=== PATIENT | female | born 1960 | race Caucasian/White ===

== ENCOUNTER 2022-01-24 05:43 | Emergency (ER) | payer MEDICAID ==
[~2022-01-24] VITALS: Ht 154.9 cm; Wt 63.4 kg
[2022-01-24] MEDS ORDERED: MECLIZINE 25MG TABLET PO ONE (07:15)
[2022-01-24] MEDS ORDERED: ONDANSETRON HCL 4MG/2ML INJ IV ONE (07:15)
[2022-01-24] MEDS ORDERED: SODIUM CHLORIDE 0.9% 500 ML IV ONE (07:15)
[2022-01-24 07:37] LABS: BASOPHILS % 0.1 % (0.0-2.0); EOSINOPHILS % 0.1 % (0.0-5.0); HEMATOCRIT. 36.6 % (36.0-48.0); HEMOGLOBIN. 12.3 g/dL (12.0-16.0); LYMPHOCYTES % 8.4 % (20.0-50.0); MEAN CORPUSCULAR HEMOGLOBIN 28.7 pg (28.0-32.0); MEAN CORPUSCULAR VOLUME 85.4 fL (81.0-99.0); MEAN PLATELET VOLUME 7.9 fl (7.4-10.4); MONOCYTES % 3.9 % (2.0-8.0); NEUTROPHILS % 87.5 % (40.0-76.0); PLATELET 198 x1000/uL (130-400); RED BLOOD CELL COUNT 4.28 mill/uL (4.2-5.4); RED CELL DISTRIBUTION WIDTH 15.8 % (11.6-14.6)
[2022-01-24 07:47] LABS: CHLORIDE 106 mEq/L (98-107)
[2022-01-24 09:55] VITALS: BP 138/75
[2022-01-24] MEDS ORDERED: POTASSIUM CHLORIDE 20MEQ TABLET SR PO ONE (10:15)
[2022-01-24] MEDS ORDERED: ONDA4TAB11 PO (10:20)
[2022-01-24] MEDS ORDERED: MECL-159 MT (10:20)
== END 2022-01-24 10:40 | disposition home or self-care (01) ==
LOC: ER 05:43
DX: R42 Dizziness and giddiness (principal); E87.6 Hypokalemia; I10 Essential (primary) hypertension
CPT/HCPCS: 36415; 70450; 71045; 80053; 82962; 83880; 84484; 85025; 93005; 96361; 96374; 99285; J2405; J7040; J8597